=== PATIENT | male | born 1965 | race Caucasian/White ===

== ENCOUNTER → 2019-04-27 14:29 | Outpatient (CLI) | payer OTHER, SELFPAY ==
--- NOTE | 2019-04-27 | DI.RAD.S_ITS ---
PROCEDURE: XR ELBOW LT MIN 3V INDICATIONS: L ELBOW LATERAL EPICONDYLITIS TECHNIQUE: 3 views of the elbow were acquired. COMPARISON: None. FINDINGS: Bones: No fractures or dislocations. No suspicious bony lesions. Soft tissues: No elbow joint effusion. No suspicious soft tissue calcifications. IMPRESSION: No acute osseous abnormality. Dictated by: Declan Khanna M.D. on 04/27/2019 at 15:43 Approved by: Declan Khanna M.D. on 04/27/2019 at 15:44
== END ==
PROVIDERS: PCP Family Medicine; Visit Provider Physician Assistant
DX: M77.12 Lateral epicondylitis, left elbow (principal)
CPT/HCPCS: 73080